=== PATIENT | female | born 1980 | race Caucasian/White ===

== ENCOUNTER 2017-10-24 10:57 | Emergency (ER) | payer BC, OTHER ==
[~2017-10-24] VITALS: Ht 157.5 cm; Wt 105.9 kg
[~2017-10-24 10:57] MED LIST: IBUP-1050 PO; OMEP40CA PO
[2017-10-24 11:09] VITALS: TEMP 37.1; Ht 157.5 cm; Wt 105.9 kg
[2017-10-24] MEDS ORDERED: ONDANSETRON INJ 2 MG/ML 2 ML VIAL IV STA (11:34)
[2017-10-24] MEDS ORDERED: SODIUM CHLORIDE 0.9% 1000ML 1,000 ML IV STA (11:34)
[2017-10-24 11:44] LABS: BASO % 0.2 %; BASO ABS # 0.03 K/uL (0-0.2); EOS % 0.2 %; EOS ABS # 0.02 K/uL (0-0.5); HEMATOCRIT 36.9 % (37-47); HEMOGLOBIN 12.2 g/dL (12.0-16.0); IG# 0.04 K/uL (0.00-0.02); LYMPH % 8.4 %; MEAN CELL VOLUME 80.9 fL (80-100); MEAN CORPUSCULAR HEMOGLOBIN 26.8 pg (25-34); MEAN CORPUSCULAR HGB CONC 33.1 g/dl (32-36); MEAN PLATELET VOLUME 10.1 fL (7.4-10.4); MONO % 10.3 %; MONO ABS # 1.35 K/uL (0.11-0.59); NEUT % 80.6 %; NEUT ABS # 10.52 K/uL (1.4-6.5); PLATELET COUNT 330 K/uL (130-400); RED CELL DISTRIBUTION WIDTH CV 15.6 % (11.5-14.5); RED CELL DISTRIBUTION WIDTH SD 46.1 fL (36.4-46.3); WHITE BLOOD COUNT 13.06 K/uL (4.8-10.8)
[2017-10-24 11:59] LABS: ALBUMIN 3.3 gm/dl (3.4-5.0); CALCIUM 8.8 mg/dl (8.5-10.1); CREATININE 0.95 mg/dl (0.60-1.20); POTASSIUM 3.3 mmol/L (3.5-5.1)
[2017-10-24 12:01] LABS: TOTAL PROTEIN 7.8 gm/dl (6.4-8.2)
--- NOTE | 2017-10-24 12:55 | DIAGNOSTIC IMAGING REPORT ---
ABDOMEN 2VIEW W/PA CHEST RTN CLINICAL HISTORY: 37 years-old Female presenting with Fever, N/V, epigastric pain to back. TECHNIQUE: PA view of the chest and supine and upright views of the abdomen were obtained. COMPARISON: None. FINDINGS: Prominence of the cardiac silhouette. Lungs and pleural spaces clear. Cholecystectomy clips noted. Nonobstructive bowel gas pattern. No gross pneumoperitoneum. Apparent enlargement of the liver shadow could be due to a Darwin lobe configuration. Allowing for bowel gas and stool, no calcifications to suggest nephrolithiasis. Osseous structures normal. IMPRESSION: 1. Possible cardiomegaly. No other convincing evidence of acute cardiopulmonary disease. 2. No radiographic evidence of acute intra-abdominal pathology. 3. Apparent enlargement of the liver shadow could be due to a Darwin lobe configuration. Electronically signed by: Lion Carrera M.D. 10/24/2017 12:54 PM Dictated Date/Time: 10/24/2017 12:52 PM
[2017-10-24] MEDS ORDERED: CIPROFLOXACIN 400MG / 200ML D5W IV STA (13:16)
[2017-10-24] MEDS ORDERED: ONDA4TAB10 SL (13:18)
[2017-10-24] MEDS ORDERED: CIPR-255 PO (13:18)
[2017-10-24] MEDS ORDERED: FLUC150T PO (14:50)
[2017-10-24 15:25] VITALS: BP 106/70; PULSE 90; O2SAT 96
--- NOTE | 2017-10-24 20:53 | EMERGENCY ROOM VISIT NOTE ---
History First contact with patient: 11:25 Chief Complaint: FEVER Stated Complaint: TEMP OF 103 SINCE WEDNESDAY History of Present Illness The patient is a 37 year old female who presents to the Emergency Room with complaints of a fever, weakness, dizziness, nausea and vomiting. The patient reports that her symptoms started on with a fever. She had a high temperature 103.4F. Following day, the patient then reported increasing fatigue. Her temperature last evening was 103.9F. She started to develop nausea and vomiting this morning. The patient denies any other significant symptoms such as cough, urinary symptoms or diarrhea. The patient reports that she was treated approximately 2-3 weeks ago for a sinus infection. She was on amoxicillin for approximately 4-5 days when she developed a yeast infection. The patient reports that her upper respiratory symptoms have been improving. Upon further detailed questioning, I was able to elicit the patient has had some mild epigastric discomfort that radiates through to the back. She has no alleviating or aggravating factors for the pain. The pain is not changed with oral intake. No change in pain with position. The patient denies any significant caffeine, alcohol or NSAIDs use. She denies any significant history of GERD. The patient reports that she did take Tylenol at 7:30 AM, and ibuprofen at 9:30 AM. She now reports that she feels sweaty. She rates her overall discomfort a 7 out of 10. Review of Systems HEENT: Denies dizziness, visual problems, hearing loss, tinnitus. Denies difficulty swallowing or oral lesions. PULMONARY: Denies cough, shortness of breath, sputum production or hemoptysis. CARDIOVASCULAR: Denies chest pain, palpitations, dyspnea on exertion, orthopnea or peripheral edema. GASTROINTESTINAL: Denies diarrhea or constipation, otherwise see HPI. GENITOURINARY: Denies dysuria, frequency, urgency or nocturia. NEUROLOGIC: Denies history of epilepsy, CVA, TIA or chronic headaches. MUSCULOSKELETAL: Denies history of joint tenderness/swelling. SKIN: Denies rashes or lesions. PSYCHIATRIC: Denies history of depression or mental illness. ENDOCRINE: Denies history of diabetes or thyroid disorders. Past Medical/Surgical History Medical Problems: (1) Ovarian Endometriosis (2) Pelv Perit Endometriosis (3) Pilonidal Cyst W/O Absc (4) Tobacco Use Disorder Surgical Problems: (1) History of cholecystectomy Family History Unremarkable Social History Smoking Status: Current Every Day Smoker Alcohol Use: occasionally Marital Status: Housing Status: lives with family Occupation Status: employed Current/Historical Medications Scheduled Ciprofloxacin Hcl (Cipro), 500 MG PO BID Fluconazole (Diflucan), 150 MG PO UD Ondasetron Odt (Zofran Odt), 4 MG SL Q6H Physical Exam Vital Signs Date Time Temp Pulse Resp B/P (MAP) Pulse Ox O2 Delivery O2 Flow Rate FiO2 10/24/17 15:25 90 18 106/70 96 10/24/17 14:30 90 20 101/59 97 Room Air 10/24/17 13:16 88 18 113/59 95 Room Air 10/24/17 11:09 37.1 110 18 109/69 98 Room Air Physical Exam CONSTITUTIONAL: Morbidly obese female, alert and oriented X 3 with positive affect. Patient does not appear acutely ill or toxic, nor does she appear in any significant distress. HEENT: Normocephalic, atraumatic. Pupils equal, round and reactive. Ears and nares are clear. No scleral icterus or conjunctival injection. OROPHARYNX: No tonsillar hypertrophy, exudates or posterior pharyngeal erythema. NECK: Full active range of motion without discomfort. No JVD or carotid bruits. No nuchal rigidity or meningeal signs. LYMPHATICS: No cervical chain adenopathy. RESPIRATORY: Clear to auscultation bilaterally with no wheezing, crackles, rhonchi or stridor. CARDIOVASCULAR: Regular rate and rhythm with no murmurs, rubs or gallops. GASTROINTESTINAL: Bowel sounds present in all quadrants. Patient has minimal epigastric tenderness to palpation. No obvious hepatosplenomegaly. Positive left CVA tenderness, negative right CVA tenderness. Negative Freire's point tenderness. No abdominal rigidity, guarding or rebound. MUSCULOSKELETAL: Full range of motion of all joints without discomfort. No tenderness to palpation through the central thoracolumbar spine or paraspinous muscles. Negative logroll and negative straight leg raise bilaterally. INTEGUMENTARY: No rash or other significant dermatologic conditions noted. HEMATOLOGIC: No ecchymosis or petechiae noted. NEUROLOGIC: No focal neurologic deficits noted. Medical Decision & Procedures ER Provider Diagnostic Interpretation: My interpretation of an abdomen obstruction series does not show any abdominal free air, significant fecal load or obvious evidence of renal or ureteral calculi. No basilar lung consolidations noted. Borderline cardiomegaly is noted. Radiologist report is as follows: ABDOMEN 2VIEW W/PA CHEST RTN CLINICAL HISTORY: 37 years-old Female presenting with Fever, N/V, epigastric pain to back. TECHNIQUE: PA view of the chest and supine and upright views of the abdomen were obtained. COMPARISON: None. FINDINGS: Prominence of the cardiac silhouette. Lungs and pleural spaces clear. Cholecystectomy clips noted. Nonobstructive bowel gas pattern. No gross pneumoperitoneum. Apparent enlargement of the liver shadow could be due to a Darwin lobe configuration. Allowing for bowel gas and stool, no calcifications to suggest nephrolithiasis. Osseous structures normal. IMPRESSION: 1. Possible cardiomegaly. No other convincing evidence of acute cardiopulmonary disease. 2. No radiographic evidence of acute intra-abdominal pathology. 3. Apparent enlargement of the liver shadow could be due to a Darwin lobe configuration. Laboratory Results 10/24/17 11:25 Red Blood Count 4.56, Mean Corpuscular Volume 80.9, Mean Corpuscular Hemoglobin 26.8, Mean Corpuscular Hemoglobin Concent 33.1, Mean Platelet Volume 10.1, Neutrophils (%) (Auto) 80.6, Lymphocytes (%) (Auto) 8.4, Monocytes (%) (Auto) 10.3, Eosinophils (%) (Auto) 0.2, Basophils (%) (Auto) 0.2, Neutrophils # (Auto ) 10.52, Lymphocytes # (Auto) 1.10, Monocytes # (Auto) 1.35, Eosinophils # (Auto ) 0.02, Basophils # (Auto) 0.03 10/24/17 11:25 Test 10/24/17 11:20 10/24/17 11:25 10/24/17 12:17 Urine Color DK YELLOW Urine Appearance TURBID (CLEAR) Urine pH 5.5 (4.5-7.5) Urine Specific [place] 1.022 (1.000-1.030) Urine Protein 2+ (NEG) Urine Glucose (UA) NEG (NEG) Urine Ketones TRACE (NEG) Urine Occult Blood 1+ (NEG) Urine Nitrite POS (NEG) Urine Bilirubin NEG (NEG) Urine Urobilinogen NEG (NEG) Urine Leukocyte Esterase MODERATE (NEG) Urine WBC (Auto) >30 /hpf (0-5) Urine RBC (Auto) 5-10 /hpf (0-4) Urine Hyaline Casts (Auto) 1-5 /lpf (0-5) Urine Epithelial Cells (Auto) >30 /lpf (0-5) Urine Bacteria (Auto) 3+ (NEG) Urine Renal Epithelial Cells 0-5 /lpf (0-5) Urine Pathogenic Casts /lpf (0) Urine Test NEG (NEG) White Blood Count 13.06 K/uL (4.8-10.8) Red Blood Count 4.56 M/uL (4.2-5.4) Hemoglobin 12.2 g/dL (12.0-16.0) Hematocrit 36.9 % (37-47) Mean Corpuscular Volume 80.9 fL (80-100) Mean Corpuscular Hemoglobin 26.8 pg (25-34) Mean Corpuscular Hemoglobin Concent 33.1 g/dl (32-36) Platelet Count 330 K/uL (130-400) Mean Platelet Volume 10.1 fL (7.4-10.4) Neutrophils (%) (Auto) 80.6 % Lymphocytes (%) (Auto) 8.4 % Monocytes (%) (Auto) 10.3 % Eosinophils (%) (Auto) 0.2 % Basophils (%) (Auto) 0.2 % Neutrophils # (Auto) 10.52 K/uL (1.4-6.5) Lymphocytes # (Auto) 1.10 K/uL (1.2-3.4) Monocytes # (Auto) 1.35 K/uL (0.11-0.59) Eosinophils # (Auto) 0.02 K/uL (0-0.5) Basophils # (Auto) 0.03 K/uL (0-0.2) RDW Standard Deviation 46.1 fL (36.4-46.3) RDW Coefficient of Variation 15.6 % (11.5-14.5) Immature Granulocyte % (Auto) 0.3 % Immature Granulocyte # (Auto) 0.04 K/uL (0.00-0.02) Erythrocyte Sedimentation Rate 64 mm/hr (0-21) Anion Gap 8.0 mmol/L (3-11) Est Creatinine Clear Calc Drug Dose 92.7 ml/min Estimated GFR () 88.7 Estimated GFR (Non- 76.5 BUN/Creatinine Ratio 9.8 (10-20) Calcium Level 8.8 mg/dl (8.5-10.1) Total Bilirubin 0.6 mg/dl (0.2-1) Direct Bilirubin 0.2 mg/dl (0-0.2) Aspartate Amino Transf (AST/SGOT) 15 U/L (15-37) Alanine Aminotransferase (ALT/SGPT) 29 U/L (12-78) Alkaline Phosphatase 66 U/L (45-117) C-Reactive Protein 17.40 mg/dl (0-0.29) Total Protein 7.8 gm/dl (6.4-8.2) Albumin 3.3 gm/dl (3.4-5.0) Lipase 67 U/L (73-393) Bedside Lactic Acid Venous 0.48 mmol/L (0.90-1.70) The above labs were reviewed. Urinalysis is consistent with infection. Urine cultures are pending. She has a mild leukocytosis. [id number] lactate is normal. Remaining electrolytes, LFTs and lipase are normal. Medications Administered Medications (Trade) Dose Ordered Sig/Audrey Route Start Time Stop Time Status Last Admin Dose Admin Sodium Chloride 1,000 ml @ 999 mls/hr Q1H1M STAT IV 10/24/17 11:34 10/24/17 12:34 DC 10/24/17 11:47 999 MLS/HR Ondansetron HCl (Zofran Inj) 4 mg NOW STAT IV 10/24/17 11:34 10/24/17 11:38 DC 10/24/17 11:47 4 MG Ciprofloxacin/ Dextrose (Cipro / D5W) 400 mg NOW STAT IV 10/24/17 13:16 10/24/17 13:17 DC 10/24/17 13:20 400 MG ED Course Patient history and physical exam were performed. Nurse's notes were reviewed. Vital signs were reviewed and were normal. The patient was afebrile in triage. Pulse rate was 110. The patient is mildly diaphoretic, likely from breaking of fever. IV access was established, and labs were drawn. The patient was hydrated with a liter of normal saline. She was administered IV Zofran for nausea. She refused any parenteral analgesics. Review of labs shows a mild leukocytosis. Urinalysis is also consistent with infection. Remaining labs were otherwise grossly normal. And abdomen obstruction series was also grossly normal. Given a positive CVA tenderness and urinalysis findings, along with the patient's recent symptoms and fever, I suspect that she has pyelonephritis. I did discuss the case further with Dr. Franco, ED attending physician regarding the need for any further urinary tract radiographic studies. He does not feel that it is needed at this time, suggested IV antibiotics and outpatient management dependent on how the patient feels. The patient reports that she did feel better with IV hydration and Zofran. The patient was administered Cipro 400 mg IV infusion. The patient felt well enough for discharge. The patient will be provided prescriptions for Cipro 500 mg twice daily 10 days, along with Zofran to prevent nausea. She was encouraged to take Tylenol as needed for additional pain relief. I did encourage her to follow-up with her PCP within the next 2-3 days. Return to the emergency department for any progressively worsening symptoms. The patient was happy with plan of care, voiced understanding of all discharge instructions , and denied any significant pain or nausea at the conclusion of my exam. Medical Decision Patient presents to the emergency department with vague symptoms and fever. Her workup today is most suggestive of pyelonephritis. Laboratory studies are not consistent at this time with acute pancreatitis or hepatitis. The patient is status post cholecystectomy. X-ray studies do not show any obstruction. At this point, I do not feel that further advanced imaging studies are warranted, however if her symptoms persist or worsen, she may require CT scan to rule out obstructive uropathy. The patient currently has good renal function. I do feel that the patient is stable for outpatient management. Medication Reconcilliation Current Medication List: was personally reviewed by me Blood Pressure Screening Patient's blood pressure: Normal blood pressure Impression Primary Impression: Pyelonephritis Departure Information Dispostion Home / Self-Care Condition GOOD Prescriptions Fluconazole (DIFLUCAN) 150 Mg Tab 150 MG PO UD, #1 TAB Prov: Nguyễn Dhillon PA 10/24/17 Ondasetron Odt (ZOFRAN ODT) 4 Mg Tab 4 MG SL Q6H for Nausea, #10 TAB Prov: Nguyễn Dhillon PA 10/24/17 Ciprofloxacin Hcl (CIPRO) 500 Mg Tab 500 MG PO BID for 10 Days, #20 TAB Prov: Nguyễn Dhillon PA 10/24/17 Forms HOME CARE DOCUMENTATION FORM, IMPORTANT VISIT INFORMATION Patient Instructions Pyelonephritis - [facility] Additional Instructions Complete all Cipro antibiotics as prescribed. Increase fluid intake. Tylenol 1000 mg every 6-8 hours as needed for pain. Zofran ODT as prescribed and as needed for nausea. Follow-up with your family doctor for recheck within the next 2-3 days. Return to the emergency department for any progressively worsening symptoms. If you develop symptoms consistent with a yeast infection, take Diflucan (1 time dose) as prescribed.
--- NOTE | 2017-10-26 12:13 | Pharmacy Progress Note ---
ED Pharmacist Culture FollowUp Date of Service: Oct 26, 2017. Patient was sent home with a prescription for ciprofloxacin, which should cover the E. coli growing from the patient's urine culture.
== END 2017-10-24 15:26 | disposition home or self-care (01) ==
LOC: C.EDB 10:59 → C.EDC 15:26
DX: N12 Tubulo-interstitial nephritis, not specified as acute or chronic (principal); F17.200 Nicotine dependence, unspecified, uncomplicated

== ENCOUNTER 2017-11-18 17:47 | Emergency (ER) | payer BC, OTHER ==
[~2017-11-18] VITALS: Ht 160 cm; Wt 104.0 kg
[~2017-11-18 17:47] MED LIST changes: +CIPR-255 PO; -IBUP-1050 PO; -OMEP40CA PO; +ONDA4TAB10 SL
[2017-11-18 17:53] VITALS: Ht 160 cm; Wt 104.0 kg
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
[2017-11-18] MEDS ORDERED: ACETAMINOPHEN 500 MG TAB PO STA (19:03)
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
[2017-11-18 19:58] VITALS: BP 132/77; PULSE 86; O2SAT 95
== END 2017-11-18 19:52 | disposition home or self-care (01) ==
LOC: C.EDB 17:48 → C.EDD 19:52
DX: R51 Headache (principal); V43.92XA Unspecified car occupant injured in collision with other type car in traffic accident, initial encounter; Y92.411 Interstate highway as the place of occurrence of the external cause; F17.200 Nicotine dependence, unspecified, uncomplicated